=== PATIENT | female | born 1965 | race Caucasian/White ===

== ENCOUNTER 2016-04-06 13:39 | Emergency (ER) | payer OTHER ==
--- NOTE | 2016-04-06 15:16 | ED NURSING NOTES ---
Clinical Report - Nurses [facility] [address] 04/06/2016 13:41 Patient: CARLOS CORDOVA TRIAGE Triage time 14:15 Apr 06 2016. Acuity: LEVEL 3. Chief Complaint: (Opioid Addiction). Alert. NINA COMA SCORE: Nina Coma Scale: 15- eyes open spontaneously (4); best verbal response- oriented x 4 (5); best motor response- obeys commands (6). --14:26 Lenin Hogue R.N. 14:17 04/06/16. BP: 171/122. HR: 56. RR: 18. O2 saturation: 97% on room air. Temp: 100.1 F. Pain level now: 7/10. Additional comments: Muscle aches and cramps. --14:26 Lenin Hogue R.N. Weight: 70.3 kg stated. Height/Length: 61 inches Per Patient. BMI: 29.3. --14:21 Lenin Hogue R.N. Medications None. --14:20 Lenin Hogue R.N. Allergies Sulfa Antibiotics. Definite Moderate(hives, swelling) --14:20 Lenin Hogue R.N. History Arrived by private vehicle. Historian: patient. Accompanied by family. Primary physician (Duke Sanchez). ( Opioid Withdrawal. Pt states that she is addicted to heroin (smokes it). Pt states that she is withdrawing right now and has a PUCKETT and muscle aches and weakness). Onset. (about 1 1/2 years ago). She has had weakness. Reports muscle aches. ( nausea). 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 PAST MEDICAL HX: Immunizations: status is unknown. The patient is post-menopausal. SOCIAL HX: Heavy tobacco smoker (cigarette)- 1 pack per day. History of drug use: heroin. No alcohol use. No infectious disease exposure. ABUSE ASSESSMENT: No report of abuse. FALL RISK ASSESSMENT: Fall risk assessment completed. No fall risk identified. NUTRITIONAL RISK ASSESSMENT: The nutritional risk assessment revealed no deficiencies. FUNCTIONAL ASSESSMENT: Functional assessment: no impairments noted. LEARNING NEEDS ASSESSMENT: The learning needs assessment revealed no barriers. SKIN INTEGRITY ASSESSMENT: Skin integrity risk assessment completed. No skin integrity risk identified. --14:26 Lenin Hogue R.N. PROBLEMS: DVT - Deep Venous Thrombosis. Substance Abuse. --14:23 Lenin Hogue R.N. ADDITIONAL SURGERIES: . Tonsillectomy. --14:23 Lenin Hogue R.N. Interventions ID and allergy band on patient. To treatment room. --14:26 Lenin Hogue R.N. PHYSICAL ASSESSMENT 14:48 04/06/16. Ambulatory to room. Patient gowned. GENERAL / NEURO / PSYCH: The patient is awake, alert and in no distress and is oriented and cooperative. She has poor eye contact. RESPIRATORY: Respirations not labored. SKIN: Skin is warm and dry. --14:48 Dennise Lindsay R.N. NURSING PROGRESS NOTES 14:49 04/06/16. Head of bed elevated. Call light placed in reach. Side rails up x 1. Bed placed in lowest position. Brakes of bed on. --14:49 Dennise Lindsay R.N. 14:49 last used yesterday @ 2200 (heroin). --14:50 Dennise Lindsay R.N. 14:54 04/06/16. Patient gowned. --14:54 Dennise Lindsay R.N. 15:09 04/06/2016 Zofran ODT (Ondansetron) PO Oral Disintegrating Tablets 8 mg given. Allergies verified and confirmed 5 rights. --15:09 Dennise Lindsay R.N. DISPOSITION / DISCHARGE Departure time: 15:30 Apr 06 2016. The patient left prior to discharge education being provided. ( Gown found on floor. Called for pt twice.). --16:01 Fracisco George R.N. Locked/Released at 04/10/2016 19:13 by Fracisco George R.N.
--- NOTE | 2016-04-06 15:16 | ED ORDER SUMMARY ---
..... Patient: CARLOS CORDOVA OrderSheet [facility] VisitID: [id number] [address] [place] [address] 50y, F Registration Date/Time: 04/06/2016 ORDER SHEET Weight: 70.3 kg (stated) Allergies: Sulfa Antibiotics GENERAL ORDERS: MEDICATION ORDERS: Zofran ODT PO 8 mg (NOW) (15:02 04/06/2016 Erica Henry) (Ack 15:04 Maria Antonia R.NLeidy) (15:09 Maria Antonia Yeung.NLeidy) IV FLUIDS: ORDER SHEET NOTES: [Electronically signed by Fracisco George R.N. (19:13 04/10/2016)] [Electronically signed by Alan Curtis Dr. (21:39 04/13/2016)] [Electronically locked/signed by Fracisco George R.N. (19:13 04/10/2016)]
--- NOTE | 2016-04-06 15:16 | ED NURSING NOTES ---
Clinical Report - Nurses [facility] [place] [address] 04/06/2016 13:41 Patient: CARLOS CORDOVA TRIAGE Triage time 14:15 Apr 06 2016. Acuity: LEVEL 3. Chief Complaint: (Opioid Addiction). Alert. NINA COMA SCORE: Nina Coma Scale: 15- eyes open spontaneously (4); best verbal response- oriented x 4 (5); best motor response- obeys commands (6). --14:26 Lenin Hogue R.N. 14:17 04/06/16. BP: 171/122. HR: 56. RR: 18. O2 saturation: 97% on room air. Temp: 100.1 F. Pain level now: 7/10. Additional comments: Muscle aches and cramps. --14:26 Lenin Hogue R.N. Weight: 70.3 kg stated. Height/Length: 61 inches Per Patient. BMI: 29.3. --14:21 Lenin Hogue R.N. Medications None. --14:20 Lenin Hogue R.N. Allergies Sulfa Antibiotics. Definite Moderate(hives, swelling) --14:20 Lenin Hogue R.N. History Arrived by private vehicle. Historian: patient. Accompanied by family. Primary physician (Duke Sanchez). ( Opioid Withdrawal. Pt states that she is addicted to heroin (smokes it). Pt states that she is withdrawing right now and has a PUCKETT and muscle aches and weakness). Onset. (about 1 1/2 years ago). She has had weakness. Reports muscle aches. ( nausea). 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 PAST MEDICAL HX: Immunizations: status is unknown. The patient is post-menopausal. SOCIAL HX: Heavy tobacco smoker (cigarette)- 1 pack per day. History of drug use: heroin. No alcohol use. No infectious disease exposure. ABUSE ASSESSMENT: No report of abuse. FALL RISK ASSESSMENT: Fall risk assessment completed. No fall risk identified. NUTRITIONAL RISK ASSESSMENT: The nutritional risk assessment revealed no deficiencies. FUNCTIONAL ASSESSMENT: Functional assessment: no impairments noted. LEARNING NEEDS ASSESSMENT: The learning needs assessment revealed no barriers. SKIN INTEGRITY ASSESSMENT: Skin integrity risk assessment completed. No skin integrity risk identified. --14:26 Lenin Hogue R.N. PROBLEMS: DVT - Deep Venous Thrombosis. Substance Abuse. --14:23 Lenin Hogue R.N. ADDITIONAL SURGERIES: . Tonsillectomy. --14:23 Lenin Hogue R.N. Interventions ID and allergy band on patient. To treatment room. --14:26 Lenin Hogue R.N. PHYSICAL ASSESSMENT 14:48 04/06/16. Ambulatory to room. Patient gowned. GENERAL / NEURO / PSYCH: The patient is awake, alert and in no distress and is oriented and cooperative. She has poor eye contact. RESPIRATORY: Respirations not labored. SKIN: Skin is warm and dry. --14:48 Dennise Lindsay R.N. NURSING PROGRESS NOTES 14:49 04/06/16. Head of bed elevated. Call light placed in reach. Side rails up x 1. Bed placed in lowest position. Brakes of bed on. --14:49 Dennise Lindsay R.N. 14:49 last used yesterday @ 2200 (heroin). --14:50 Dennise Lindsay R.N. 14:54 04/06/16. Patient gowned. --14:54 Dennise Lindsay R.N. 15:09 04/06/2016 Zofran ODT (Ondansetron) PO Oral Disintegrating Tablets 8 mg given. Allergies verified and confirmed 5 rights. --15:09 Dennise Lindsay R.N. DISPOSITION / DISCHARGE Departure time: 15:30 Apr 06 2016. The patient left prior to discharge education being provided. ( Gown found on floor. Called for pt twice.). --16:01 Fracisco George R.N. Locked/Released at 04/10/2016 19:13 by Fracisco George R.N.
--- NOTE | 2016-04-06 15:16 | ED ORDER SUMMARY ---
..... Patient: CARLOS CORDOVA OrderSheet [facility] VisitID: [id number] [address] [place] [address] 50y, F Registration Date/Time: 04/06/2016 ORDER SHEET Weight: 70.3 kg (stated) Allergies: Sulfa Antibiotics GENERAL ORDERS: MEDICATION ORDERS: Zofran ODT PO 8 mg (NOW) (15:02 04/06/2016 Erica Henry) (Ack 15:04 Maria Antonia R.NLeidy) (15:09 Maria Antonia Yeung.NLeidy) IV FLUIDS: ORDER SHEET NOTES: [Electronically signed by Fracisco George R.N. (19:13 04/10/2016)] [Electronically signed by Alan Curtis Dr. (21:39 04/13/2016)] [Electronically locked/signed by Fracisco George R.N. (19:13 04/10/2016)]
--- NOTE | 2016-04-06 15:18 | ED CLINICAL REPORT ---
Clinical Report - Physicians/Mid Levels [facility] [address] [place] [address] 04/06/2016 13:41 Patient: CARLOS CORDOVA Arrived- By private vehicle. Historian- patient. HISTORY OF PRESENT ILLNESS Chief Complaint: detox from heroin. Symptoms started yesterday. Substances abused: Heroin. The patient has had chills, nausea, vomiting and diarrhea and been agitated. The symptoms are described as severe. Injuries noted. No recent fall. Not assaulted. got hooked on heroin due to significant other. Similar symptoms previously: None. Recent medical care: Not recently seen/assessed. REVIEW OF SYSTEMS No chest pain, palpitations or difficulty breathing. All systems otherwise negative, except as recorded above. PAST HISTORY See nurses notes. Medications: None. Allergies: Sulfa Antibiotics. Definite Moderate(hives, swelling). SOCIAL HISTORY Never smoker. History of drug use: heroin. No alcohol use. Has social support. Has place to stay. ADDITIONAL NOTES The nursing notes have been reviewed. PHYSICAL EXAM Vital Signs: 04/06/2016 14:17 BP: 171/122. HR: 56. RR: 18. O2 saturation: 97%. Temp: 100.1 F. Pain level now: 7/10. Hypertensive. Oxygen saturation normal. Appearance: Alert. Oriented X3. No acute distress. Head: Head atraumatic. Eyes: Pupils equal, round and reactive to light. ENT: Normal ENT inspection. Airway intact. Moist mucous membranes. Pharynx normal. Neck: Normal inspection. Neck supple. CVS: Normal heart rate and rhythm. Heart sounds normal. Pulses normal. Respiratory: No respiratory distress. Breath sounds normal. Abdomen: Soft and nontender. No organomegaly. Skin: Skin warm and dry. Normal skin color. No rash. Normal skin turgor. (piloerection). Extremities: Extremities exhibit normal ROM. No lower extremity edema. Neuro: Alert. Oriented X 3. Mood/affect normal. Speech normal. Cranial nerves normal (as tested). No cerebellar findings. No motor deficit. No sensory deficit. Reflexes normal. (normal gait). PROGRESS AND PROCEDURES Course of Care: the patient is a pleasant 50-year-old female with past medical history significant for heroin abuse presenting for evaluation of opiate withdrawal. Patient reports that she last used several days ago. Patient states that he is having body aches all over. Patient has no other concerns at this time. Patient inquired about medications to help with withdrawal symptoms. Had discussion with patient in regards to substances and heroin. Offered medications for symptom control however expressed my deep concern for offering other medications such as opioids for helping with the redraw symptoms. Offered patient information for detox. Patient states that he has these information sheets available to him. Patient also states that he has had information about methadone. Offered patient Zofran and other medications for symptoms. Patient was agreeable to the treatment plan. No concern for sepsis or infectious etiology for patient's symptoms here in the emergency department today. Patient has been evaluated for any other abnormalities noted. Patient has an otherwise reassuring examination. Examination consistent with opioid-induced withdrawal symptoms. prior to patient's discharge from the emergency department, was informed by nursing staff the patient had walked out of the emergency department. Patient was also accompanied by significant other who is also experiencing same symptoms. Patient did not appear toxic. Attempted to have the patient's discharge instructions and explained to patient his workup and diagnosis however patient had left prior to this. Disposition: Discharged. Condition: good. CLINICAL IMPRESSION 04/06/2016 14:17 BP: 171/122. HR: 56. RR: 18. O2 saturation: 97%. Temp: 100.1 F. Pain level now: 7/10. Moderate nausea with vomiting. Hypertensive. Oxygen saturation normal. Narcotic withdrawal (acute). Essential hypertension. INSTRUCTIONS Warnings: GENERAL WARNINGS: Return or contact your physician immediately if your condition worsens or changes unexpectedly, if not improving as expected, or if other problems arise. Specifically return if pain, vomiting, bleeding, breathing difficulty or fever. Your Current Medications: CONTINUE TAKING THE FOLLOWING MEDICATIONS: None*. Prescription Medications: Zofran (orally disintegrating tablets) 4 mg: take 1 orally every 8 hours as needed for nausea and vomiting. Dispense fifteen (15). No refill. Substitution is permissible. Follow-up: Return to the emergency department as needed. Follow up with your doctor in three days. Reason for referral: recheck today's concerns. Summary of care provided to patient via paper. Screening today revealed the patient's blood pressure to be in the normal range. The patient should follow up with a primary care provider for blood pressure management. Understanding of the discharge instructions verbalized by patient. (Electronically signed by Alan Curtis Dr. 04/13/2016 21:39)
--- NOTE | 2016-04-13 21:39 | ED MAR SUMMARY ---
..... Medication Administration Record [facility] [address] [place] [address] Patient: CARLOS CORDOVA Visit ID: [id number] 50y, F Weight: 70.3 kg Height/Length: 61 in BMI: 29.3 ALLERGIES: Sulfa Antibiotics Given 15:09 04/06/2016 Dennise Lindsay R.N. Medication Administered: ZOFRAN ODT [PO] (ONDANSETRON), Dose: 8 mg Oral Disintegrating Tablets PO. Medication Ordered: Zofran ODT PO 8 mg (NOW).
--- NOTE | 2016-04-13 21:39 | ED MED RECONCILIATION SUMMARY ---
Patient: CARLOS CORDOVA Medication Reconciliation Report [facility] VisitID: [id number] [address] [place] [address] 50y, F Registration Date/Time: 04/06/2016 Weight: 70.3 kg Height/Length: 61 in. BMI: 29.3 ALLERGIES: Sulfa Antibiotics The patient's Home Medications are listed below: NONE. The source(s) of the original Home Medication information: Not obtained. The following Medications were given to the patient in the Emergency Department: Zofran ODT [PO] PO 8 mg, administered: 04/06/2016 3:09:00 PM The following Medications were prescribed to the patient: Zofran (orally disintegrating tablets) 4 mg: take 1 orally every 8 hours as needed for nausea and vomiting. Dispense fifteen (15). No refill. Substitution is permissible. -- Alan Curtis Dr.
--- NOTE | 2016-04-13 21:39 | ED MED RECONCILIATION SUMMARY ---
Patient: CARLOS CORDOVA Medication Reconciliation Report [facility] VisitID: [id number] [address] [place] [address] 50y, F Registration Date/Time: 04/06/2016 Weight: 70.3 kg Height/Length: 61 in. BMI: 29.3 ALLERGIES: Sulfa Antibiotics The patient's Home Medications are listed below: NONE. The source(s) of the original Home Medication information: Not obtained. The following Medications were given to the patient in the Emergency Department: Zofran ODT [PO] PO 8 mg, administered: 04/06/2016 3:09:00 PM The following Medications were prescribed to the patient: Zofran (orally disintegrating tablets) 4 mg: take 1 orally every 8 hours as needed for nausea and vomiting. Dispense fifteen (15). No refill. Substitution is permissible. -- Alan Curtis Dr.
--- NOTE | 2016-04-13 21:39 | ED MAR SUMMARY ---
..... Medication Administration Record [facility] [address] [place] [address] Patient: CARLOS CORDOVA Visit ID: [id number] 50y, F Weight: 70.3 kg Height/Length: 61 in BMI: 29.3 ALLERGIES: Sulfa Antibiotics Given 15:09 04/06/2016 Dennise Lindsay R.N. Medication Administered: ZOFRAN ODT [PO] (ONDANSETRON), Dose: 8 mg Oral Disintegrating Tablets PO. Medication Ordered: Zofran ODT PO 8 mg (NOW).
--- NOTE | 2016-04-13 21:39 | ED DISCHARGE INSTRUCTIONS ---
Patient: CARLOS CORDOVA General Instructions [facility] VisitID: [id number] [place] [address] 50y, F Registration Date/Time: 04/06/2016 04/06/2016 14:17 BP: 171/122. HR: 56. RR: 18. O2 saturation: 97%. Temp: 100.1 F. Pain level now: 7/10. Moderate nausea with vomiting. Hypertensive. Oxygen saturation normal. Narcotic withdrawal (acute). Essential hypertension. INSTRUCTIONS Warnings: GENERAL WARNINGS: Return or contact your physician immediately if your condition worsens or changes unexpectedly, if not improving as expected, or if other problems arise. Specifically return if pain, vomiting, bleeding, breathing difficulty or fever. Your Current Medications: CONTINUE TAKING THE FOLLOWING MEDICATIONS: None*. Prescription Medications: Zofran (orally disintegrating tablets) 4 mg: take 1 orally every 8 hours as needed for nausea and vomiting. Dispense fifteen (15). No refill. Substitution is permissible. Follow-up: Return to the emergency department as needed. Follow up with your doctor in three days. Reason for referral: recheck today's concerns. Summary of care provided to patient via paper. Screening today revealed the patient's blood pressure to be in the normal range. The patient should follow up with a primary care provider for blood pressure management. Understanding of the discharge instructions verbalized by patient. ADDITIONAL INFORMATION High Blood Pressure -- New (Begin Tx) Your blood pressure was high enough today to start treatment with medicines. The cause of hypertension is unknown in most cases, but can be controlled with lifestyle changes and/or medicines. Hypertension may cause headache, dizziness, blurred vision, rushing sound in your ears, chest pain or shortness of breath. Sometimes it causes no symptoms at all. However, untreated hypertension increases the risk of heart attack, also known as acute myocardial infarction, or AMI, and stroke. It is a serious health risk and should not be ignored. A normal blood pressure is 120/80 or less. The first (top) number is the "systolic" pressure. The second (bottom) number is the "diastolic" pressure. Hypertension exists when either the top number is 140 or higher, OR the bottom number is 90 or higher on repeated measurements. Home Care: All patients with hypertension should do the following to lower their pressure. If you are on medicines, then these methods may reduce or eliminate your need for medicine in the future. Begin a weight loss program if you are overweight. Reduce your salt intake. Avoid high salt foods (olives, pickles, smoked meats, salted potato chips, etc.). Do not add salt to your food at the table. Use only small amounts of salt when cooking. Begin an exercise program. Discuss with your doctor what type of exercise program would be best for you. It doesn't have to be difficult. Even brisk walking for 20 minutes three times a week is a good form of exercise. Avoid medicines which contain heart stimulants. This includes many cold and sinus decongestant pills and sprays as well as diet pills. Check the warnings about hypertension on the label. Stimulants such as amphetamine or cocaine could be lethal for someone with hypertension. Never take these. Limit your caffeine intake or switch to caffeine-free products. Stop smoking. If you are a long-time smoker, this can be hard. Enroll in a stop-smoking program to improve your chance of success. Talk to your physician about ways to improve your chance of success. Learning how to handle stress better is an important part of any program to lower blood pressure. Learn about relaxation methods such as meditation, yoga, or biofeedback. If medicines were prescribed, take them exactly as directed. Missing doses may cause your blood pressure to get out of control. Consider buying an automatic blood pressure machine (available at many pharmacies). Use this to monitor your blood pressure and report to your doctor. Follow Up: Because a new blood pressure medicine was started today, it is important that you have your blood pressure rechecked to be sure you are responding well and that there are no serious side effects. Unless told otherwise, follow-up with your doctor or this facility within the next THREE DAYS. Get Prompt Medical Attention if any of the following occur: Chest pain or shortness of breath Severe headache Throbbing or rushing sound in the ears Nosebleed Sudden severe abdominal pain Extreme drowsiness, confusion or fainting Dizziness or vertigo (dizziness with spinning sensation) Weakness of an arm or leg or one side of the face Difficulty with speech or vision Ondansetron Oral disintegrating tablet What is this medicine? ONDANSETRON (on ESA se ziyad) is used to treat nausea and vomiting caused by chemotherapy. It is also used to prevent or treat nausea and vomiting after surgery. How should I use this medicine? These tablets are made to dissolve in the mouth. Do not try to push the tablet through the foil backing. With dry hands, peel away the foil backing and gently remove the tablet. Place the tablet in the mouth and allow it to dissolve, then swallow. While you may take these tablets with water, it is not necessary to do so. Talk to your interventional radiology technologist regarding the use of this medicine in children. Special care may be needed. What side effects may I notice from receiving this medicine? Side effects that you should report to your doctor or health senior care specialist as soon as possible: allergic reactions like skin rash, itching or hives, swelling of the face, lips, or tongue breathing problems dizziness fast or irregular heartbeat feeling faint or lightheaded, falls fever and chills swelling of the hands and feet tightness in the chest Side effects that usually do not require medical attention (report to your doctor or health senior care specialist if they continue or are bothersome): constipation or diarrhea headache What may interact with this medicine? Do not take this medicine with any of the following medications: -apomorphine -cisapride -dofetilide -dronedarone -pimozide -thioridazine -ziprasidone This medicine may also interact with the following medications: -carbamazepine -phenytoin -rifampicin -tramadol -other medicines that prolong the QT interval (cause an abnormal heart rhythm) What if I miss a dose? If you miss a dose, take it as soon as you can. If it is almost time for your next dose, take only that dose. Do not take double or extra doses. Where should I keep my medicine? Keep out of the reach of children. Store between 2 and 30 degrees C (36 and 86 degrees F). Throw away any unused medicine after the expiration date. What should I tell my health care provider before I take this medicine? They need to know if you have any of these conditions: heart disease history of irregular heartbeat liver disease low levels of magnesium or potassium in the blood an unusual or allergic reaction to ondansetron, granisetron, other medicines, foods, dyes, or preservatives or trying to get breast-feeding What should I watch for while using this medicine? Check with your doctor or health senior care specialist as soon as you can if you have any sign of an allergic reaction. You have been given the following additional information: Hypertension, New (Begin Treatment) Ondansetron Oral disintegrating tablet (Electronically signed by Alan Curtis Dr. 04/13/2016 21:39)
== END 2016-04-06 15:30 | disposition left against medical advice (07) ==
LOC: ED SRH 13:39
DX: F11.23 Opioid dependence with withdrawal (principal); R11.2 Nausea with vomiting, unspecified; I10 Essential (primary) hypertension; Z88.2 Allergy status to sulfonamides